=== PATIENT | female | born 1950 | race Two or more races ===

== ENCOUNTER 2022-02-07 11:50 | Outpatient (CLI) | payer BC, MEDICARE | END 2022-02-07 23:59 | disposition home or self-care (01) | LOC: WOU 11:50 | PROVIDERS: ATTEND Specialist | DX: M05.2 Rheumatoid vasculitis with rheumatoid arthritis (principal); M05.70 Rheumatoid arthritis with rheumatoid factor of unspecified site without organ or systems involvement | CPT/HCPCS: G0463 ==